=== PATIENT | female | born 1980 | race Two or more races ===

== ENCOUNTER 2019-10-21 08:44 | Emergency (ER) | payer MEDICAID ==
[~2019-10-21] VITALS: Ht 152.4 cm; Wt 84.0 kg
[2019-10-21 10:01] VITALS: BP 117/64
== END 2019-10-21 10:02 | disposition home or self-care (01) ==
LOC: ER 08:44
DX: R05 Cough (principal); J02.9 Acute pharyngitis, unspecified
CPT/HCPCS: 71045; 81025; 99283